=== PATIENT | female | born 1985 | race Caucasian/White ===

== ENCOUNTER 2022-11-07 13:11 | Inpatient (IN) | payer BC ==
[~2022-11-07] VITALS: Ht 162.6 cm; Wt 95.3 kg
--- NOTE | 2022-11-07 13:14 | NUR ---
Dr Patel evaluated the pt. Pt remaines postictal.
[2022-11-07] MEDS ORDERED: LORAZEPAM 2 MG/1 ML VIAL IM ONE ×2 (13:15→14:00)
[2022-11-07] MEDS ORDERED: IV NORMAL SALINE 1000 ML BAG IV ONE (13:15)
--- NOTE | 2022-11-07 13:20 | NUR ---
HL attempted by 2 different RNs unable to place one, Dr Patel ordered Midline. Nsg sup notified.
[2022-11-07] MEDS ORDERED: LORAZEPAM 2 MG/1 ML VIAL ONE ×3 (13:28→20:30)
[2022-11-07] MEDS ORDERED: LORAZEPAM 2 MG/1 ML VIAL IV ONE ×2 (13:30→17:00)
[2022-11-07] MEDS ORDERED: levETIRAcetam 500 MG/5 ML VIAL IV ONE ×2 (13:32→21:18)
[2022-11-07 13:34] LABS: HEMATOCRIT 39.9 % (31.2-41.9); MEAN CORPUSCULAR HEMOGLOBIN 31.7 uug (24.7-32.8); MEAN CORPUSCULAR VOLUME 93.9 fL (75.5-95.3); PLATELET COUNT (AUTO) 355 K/uL (179-408)
[2022-11-07] MEDS ORDERED: PREG200C PO (13:51)
[2022-11-07] MEDS ORDERED: CLON0.1T PO (13:51)
[2022-11-07] MEDS ORDERED: LITH300C2 PO (13:51)
[2022-11-07] MEDS ORDERED: ESCI10TA PO (13:51)
[2022-11-07] MEDS ORDERED: BUPR200T31 PO (13:51)
[2022-11-07] MEDS ORDERED: BUPR8TAB4 SL (13:51)
[2022-11-07] MEDS ORDERED: HYDR50CA5 PO (13:51)
[2022-11-07] MEDS ORDERED: PRAZ1CAP5 PO (13:51)
[2022-11-07] MEDS ORDERED: VALA500T34 PO (13:51)
[2022-11-07] MEDS ORDERED: TRAZ-257 PO (13:51)
[2022-11-07] MEDS ORDERED: METH-807 PO (13:51)
[2022-11-07] MEDS ORDERED: TOPI50TA PO (13:51)
[2022-11-07] MEDS ORDERED: ONDA4TAB11 PO (13:51)
[2022-11-07] MEDS ORDERED: BUSP15TA3 PO (13:51)
[2022-11-07] MEDS ORDERED: LEVE500T9 PO (13:51)
[2022-11-07] MEDS ORDERED: DIAZ10TA4 PO (13:51)
[2022-11-07] MEDS ORDERED: PIPERACILLIN SODIUM/TAZOBACTAM 3.375 G in IV DEXTROSE 5% 50 ML IV ONE (14:15)
[2022-11-07 14:44] LABS: POTASSIUM 4.3 mmol/L (3.5-5.1)
[2022-11-07 14:49] LABS: BILIRUBIN,DIRECT 0.4 mg/dL (0.0-0.2); TOTAL PROTEIN, SERUM 8.6 g/dL (6.4-8.2)
--- NOTE | 2022-11-07 15:20 | NUR ---
Pt agreed to have centeral line, and signed consent. Also spoke to Pt's motherw/ Dr Patel( yolanda De La Garza) and recieved verbal consent.
--- NOTE | 2022-11-07 15:20 | NUR ---
Pt's mother Gloria@ [phone].
--- NOTE | 2022-11-07 15:30 | NUR ---
Dr Patel placed a triple lumen centeral line on Rt external jugular.
[2022-11-07] MEDS: levETIRAcetam IV 1,000 MG in IV DEXTROSE 5% 100 ML IV SCH ×3 (15:46→22:03)
[2022-11-07] MEDS ORDERED: PIPERACILLIN/TAZOBACTAM/D5W 50 ML IV ONE ×2 (15:53→23:01)
[2022-11-07] MEDS ORDERED: ACETAMINOPHEN 325 MG TABLET PO PRN (16:00)
[2022-11-07] MEDS ORDERED: MAGNESIUM HYDROXIDE 30 ML LIQUID UDC PO PRN (16:00)
[2022-11-07] MEDS ORDERED: ONDANSETRON 4 MG/2 ML VIAL IV PRN (16:00)
[2022-11-07] MEDS ORDERED: REMEDY ESSENTIAL ZINC PASTE 113 GM TP PRN (16:00)
[2022-11-07] MEDS ORDERED: LIDOCAINE HCL 1% 20 ML VIAL ONE (16:12)
[2022-11-07 16:31] LABS: ACETAMINOPHEN < 2.0 ug/mL (10-30)
--- NOTE | 2022-11-07 16:55 | NUR ---
Pt confused, getting out of bed. Gait unsteady. Dr Patel made aware.
[2022-11-07 17:29] LABS: *AMPHETAMINE, URINE NEGATIVE (NEGATIVE); *CANNABINOID, URINE NEGATIVE (NEGATIVE); *COCCAINE, URINE NEGATIVE (NEGATIVE); *PHENCYCLIDINE SCREEN,URINE NEGATIVE (NEGATIVE)
--- NOTE | 2022-11-07 17:34 | NUR ---
Patient is resting comfortably in bed with eyes closed< NAD noted. Continue close monitoring.
--- NOTE | 2022-11-07 18:40 | NUR ---
Pt resting w/ both eyes closed, NAD noted. Continue monitoring.
--- NOTE | 2022-11-07 19:15 | NUR ---
REPORT RECEIVED FROM BRENNAN HIDALGO.
--- NOTE | 2022-11-07 20:20 | NUR ---
PT WAS AGITATED. DR NAIK CALLED FOR ORDERS. ORDERS RECEIVED FOR ATIVAN AND LIBRIUM. SEE EMAR.
[2022-11-07] MEDS: CHLORDIAZEPOXIDE HCL 25 MG CAPSULE PO SCH (20:30)
[2022-11-07] MEDS ORDERED: CHLORDIAZEPOXIDE HCL 25 MG CAPSULE ONE (20:31)
[2022-11-07] MEDS: LORAZEPAM 2 MG/1 ML VIAL IV PRN (20:40)
--- NOTE | 2022-11-07 21:35 | NUR ---
PT SEDATED WITH NAD OBSERVED. Pt. admitted to 310 , under care of Dr. NAIK Belongs List completed. PT TAKEN TO 310 VIA [facility].
--- NOTE | 2022-11-07 21:45 | NUR ---
RECEIVED PATIENT VIA GURNEY TO ER. PATIENT IS ALERT TO SELF. DOUBLE LUMEN INTERNAL JUGULAR NOTED TO RIGHT SIDE. AGITATED AND DISORIENTED. VS WNL UPON ADMISSION TO FLOOR. PLACED ON TELE ORDERED, SR 60'S. NO SEIZURE ACTIVITY NOTED AT THIS TIME. SIDE RAILS PADDED FOR SEIZURE PRECAUTIONS. NO RESP. DISTRESS NOTED. BED ALARM ON. CALL LIGHT IN REACH. ALL NEEDS ATTENDED, WILL CONTINUE TO MONITOR AND ASSESS. Addendum: 11/08/22 at 0246 by KATHERINE RAMÍREZ LVN *TIME CLARIFICATION- PATIENT ARRIVED TO THE FLOOR AT 2240
--- NOTE | 2022-11-07 22:35 | NUR ---
PT TAKEN TO 310 VIA GURNEY. WAITED FOR ROLLOVER.
[2022-11-07 22:59] VITALS: BP 113/73
--- NOTE | 2022-11-07 23:00 | NUR ---
PATIENT PULLED OUT INTERNAL JUGULAR NOTED TO RIGHT SIDE. CALLED OUT TO MD FOR RESTRAINT ORDERS.
--- NOTE | 2022-11-08 00:37 | NUR ---
PATIENT ASLEEP IN BED. ON TELE SR. NO RESP. DISTRESS NOTED. BED ALARM ON.
[2022-11-08] MEDS: LORAZEPAM 2 MG/1 ML VIAL IV PRN (01:32)
[2022-11-08 04:00] VITALS: BP 117/65
[2022-11-08] MEDS: PANTOPRAZOLE SODIUM 40 MG TABLET.DR PO SCH (06:02)
--- NOTE | 2022-11-08 06:36 | NUR ---
PATIENT AWAKE IN BED. CALM AT THIS TIME. RESTRAINTS OFF AT THIS TIME. NO IV ACCESS NOTED. MID-LINE ORDERED FOR AM. ALL NEEDS ATTENDED. BED ALARM ON. ON TELE SR.
[2022-11-08 07:02] LABS: HEMATOCRIT 37.7 % (31.2-41.9); MEAN CORPUSCULAR HEMOGLOBIN 31.9 uug (24.7-32.8); MEAN CORPUSCULAR VOLUME 94.9 fL (75.5-95.3); PLATELET COUNT (AUTO) 300 K/uL (179-408)
[2022-11-08 07:05] LABS: BILIRUBIN,DIRECT 0.3 mg/dL (0.0-0.2); BILIRUBIN,TOTAL 0.8 mg/dL (0.2-1.0); CREATININE 0.9 mg/dL (0.6-1.3); MAGNESIUM 2.1 mg/dL (1.8-2.4); TOTAL PROTEIN, SERUM 7.7 g/dL (6.4-8.2)
[2022-11-08 08:00] VITALS: BP 131/64
[2022-11-08] MEDS ORDERED: PIPERACILLIN SODIUM/TAZOBACTAM 3.375 G in IV DEXTROSE 5% 50 ML IV SCH ×3 (08:00)
[2022-11-08] MEDS: PIPERACILLIN SODIUM/TAZOBACTAM 3.375 G in IV DEXTROSE 5% 100 ML IV SCH ×2 (08:00→16:00)
[2022-11-08] MEDS: CHLORDIAZEPOXIDE HCL 25 MG CAPSULE PO SCH ×2 (09:00→16:56)
[2022-11-08] MEDS: levETIRAcetam IV 1,000 MG in IV DEXTROSE 5% 100 ML IV SCH (09:00)
--- NOTE | 2022-11-08 10:56 | NUR ---
pt in bilateral upper restrsints and refusing midkline placment and kicking at [facility] dr goel paged pt stating she wants to go0 back to detox center no seizures noted at this time
[2022-11-08 11:54] VITALS: BP 137/96
[2022-11-08] MEDS: FOLIC ACID 1 MG TABLET PO SCH (13:15)
[2022-11-08] MEDS ORDERED: HALOPERIDOL LACTATE 5 MG/1 ML VIAL IM ONE ×2 (13:30→17:00)
[2022-11-08] MEDS: LITHIUM CARBONATE 300 MG CAPSULE PO SCH (16:56)
[2022-11-08] MEDS: busPIRone 10 MG TABLET PO SCH (17:00)
[2022-11-08] MEDS ORDERED: LORAZEPAM 2 MG/1 ML VIAL IM ONE (17:30)
[2022-11-08] MEDS ORDERED: diphenhydrAMINE 50 MG/1 ML VIAL IV ONE ×3 (17:30→20:15)
[2022-11-08] MEDS: PRAZOSIN HCL 1 MG CAPSULE PO SCH (18:49)
--- NOTE | 2022-11-08 18:51 | NUR ---
pt with multiple code del real codes called due to her restraints removed after pt found in an comprised postion in bed between the rails. sushma with pschy notifed as well as ccnp radha. pt direactable but keeps attemptinh to leave after numerous amys of medications given
--- NOTE | 2022-11-08 20:00 | NUR ---
pt received in the room very restless and disoriented with multiple code del real codes called due to her removed after pt found in an comprised postion in bed between the rails. medications given after mupli[ple, patient made safe and comfortable,
[2022-11-08] MEDS: levETIRAcetam 500 MG TABLET PO SCH (20:36)
[2022-11-08] MEDS: TRAZODONE 100 MG TABLET PO SCH (20:37)
[2022-11-09 07:29] LABS: HEMATOCRIT 36.6 % (31.2-41.9); MEAN CORPUSCULAR HEMOGLOBIN 31.7 uug (24.7-32.8); MEAN CORPUSCULAR VOLUME 92.9 fL (75.5-95.3); PLATELET COUNT (AUTO) 320 K/uL (179-408)
[2022-11-09] MEDS: PIPERACILLIN SODIUM/TAZOBACTAM 3.375 G in IV DEXTROSE 5% 100 ML IV SCH ×3 (08:00)
--- NOTE | 2022-11-09 08:00 | NUR ---
pt is confused and want to get out of the bed. pt is fall risk secondary to diagnosis. MD ordered 1:1 sitter for the pt, nursing boiler shop supervisor was informed. no sitter available per nursing boiler shop supervisor.
--- NOTE | 2022-11-09 08:00 | NUR ---
zozyn dosed not administered. pt have no iv access. pt is restless to established iv access. md cobos aware.
[2022-11-09 08:01] LABS: BILIRUBIN,DIRECT 0.2 mg/dL (0.0-0.2); BILIRUBIN,TOTAL 0.6 mg/dL (0.2-1.0); CREATININE 0.9 mg/dL (0.6-1.3); MAGNESIUM 2.1 mg/dL (1.8-2.4); PHOSPHOROUS 4.7 mg/dL (2.5-4.9); POTASSIUM 3.7 mmol/L (3.5-5.1); TOTAL PROTEIN, SERUM 7.8 g/dL (6.4-8.2)
[2022-11-09] MEDS ORDERED: LORAZEPAM 2 MG/1 ML VIAL IM ONE (08:15)
[2022-11-09] MEDS: TOPIRAMATE 25 MG TABLET PO SCH (08:25)
[2022-11-09] MEDS: THIAMINE HCL 100 MG TABLET PO SCH (08:26)
[2022-11-09] MEDS: levETIRAcetam 500 MG TABLET PO SCH ×2 (08:26→20:40)
[2022-11-09] MEDS: CHLORDIAZEPOXIDE HCL 25 MG CAPSULE PO SCH ×2 (08:26→17:20)
[2022-11-09] MEDS: ESCITALOPRAM OXALATE 10 MG TABLET PO SCH (08:26)
[2022-11-09] MEDS: FOLIC ACID 1 MG TABLET PO SCH (08:26)
[2022-11-09] MEDS: LITHIUM CARBONATE 300 MG CAPSULE PO SCH ×2 (08:28→17:20)
[2022-11-09] MEDS: busPIRone 10 MG TABLET PO SCH ×2 (08:28→17:20)
[2022-11-09] MEDS: PANTOPRAZOLE SODIUM 40 MG TABLET.DR PO SCH (08:39)
--- NOTE | 2022-11-09 09:00 | NUR ---
pt is agitated and restless. made aware. new order carried out. ativan 2mg IM was administered.
--- NOTE | 2022-11-09 10:06 | NUR ---
SW consult for discharge planning. JESSICA spoke to patient's mother, Brandi Perez ([phone]) and she states the patient has been staying at a sober living facility, [facility] ([phone]). JESSICA spoke to Vikash from [facility] and he states the patient will be transferring to [facility] ([phone]) under the direct care of Dr. Zarate. JESSICA spoke to Dr. Zarate and he confirmed that the patient is accepted to the [facility] when she is discharged. JESSICA informed bilingual case manager, Perlita and will continue to follow up.
[2022-11-09 11:00] LABS: THYROID STIMULATING HORMONE 1.414 mIU/mL (0.358-3.740)
[2022-11-09 12:00] VITALS: BP 119/63
--- NOTE | 2022-11-09 12:00 | NUR ---
pt is still confused and agitated. md made aware. soft wrist bilateral medical restraint order was ordered.
--- NOTE | 2022-11-09 12:00 | NUR ---
pt was seen by the psychiatrist. no new order at this time.
--- NOTE | 2022-11-09 13:12 | NUR ---
Discharge note: JESSICA spoke with the admitting Doctor, Dr. Zarate ([phone]) and the patient can be transferred to [address] [id number] tomorrow 11/10/2022 at 10am. JESSICA informed the case packer and sealer, Perlita and she will set up transportation for the patient. JESSICA informed Abilio Subramanian NP and the patient's mother, Gloria.
[2022-11-09] MEDS ORDERED: LORAZEPAM 1 MG TABLET PO PRN (14:00)
[2022-11-09] MEDS ORDERED: OLANZAPINE 5 MG TABLET PO PRN (14:00)
[2022-11-09] MEDS: LACTULOSE 20 G/30 ML LIQUID UDC PO SCH ×2 (15:52→20:40)
[2022-11-09 16:00] VITALS: BP 146/68
[2022-11-09] MEDS: PRAZOSIN HCL 1 MG CAPSULE PO SCH (17:20)
--- NOTE | 2022-11-09 20:00 | NUR ---
Received patient lying in bed. Alert to self only. In no acute distress. No signs or symptoms of pain or SOB. Bilateral wrist restraint in place. Check hand circulation. Needs assessed and anticipated to Safety measure initiated. Continue to monitor.
[2022-11-09 20:24] VITALS: BP 126/74
[2022-11-09] MEDS: TRAZODONE 100 MG TABLET PO SCH (20:40)
[2022-11-10 04:43] VITALS: BP 126/76
--- NOTE | 2022-11-10 05:28 | NUR ---
In no acute distress. Alert to self only. Able to follow direction. Periods of anxiety. Given Ativan 1mg PO. Incontinent care provided. Assisted to toilet per request.
[2022-11-10] MEDS: PANTOPRAZOLE SODIUM 40 MG TABLET.DR PO SCH (06:10)
[2022-11-10 08:00] VITALS: BP 142/80
--- NOTE | 2022-11-10 08:00 | NUR ---
pt resting in bed with legs over the rails- instructed to put back legs in bed and did, oriented to name only, no distress noted, assisted wisth meal but ate very little, took all meds, no coughing episode noted, safety measures in place, bed alarm on
[2022-11-10] MEDS: levETIRAcetam 500 MG TABLET PO SCH (09:03)
[2022-11-10] MEDS: busPIRone 10 MG TABLET PO SCH (09:04)
[2022-11-10] MEDS: ESCITALOPRAM OXALATE 10 MG TABLET PO SCH (09:04)
[2022-11-10] MEDS: LITHIUM CARBONATE 300 MG CAPSULE PO SCH (09:05)
[2022-11-10] MEDS: THIAMINE HCL 100 MG TABLET PO SCH (09:05)
[2022-11-10] MEDS: FOLIC ACID 1 MG TABLET PO SCH (09:05)
[2022-11-10] MEDS: LACTULOSE 20 G/30 ML LIQUID UDC PO SCH (09:06)
[2022-11-10] MEDS: CHLORDIAZEPOXIDE HCL 25 MG CAPSULE PO SCH (09:06)
[2022-11-10] MEDS: TOPIRAMATE 25 MG TABLET PO SCH (09:06)
--- NOTE | 2022-11-10 09:26 | NUR ---
am care done, to be discharged today at [facility] via ambulance
--- NOTE | 2022-11-10 10:20 | NUR ---
ambulance here- report given- ID bracelet removed, all belongings given, taken per gurney in stable condition, called [facility] and report given- papers needed to be faxed to them- SW informed
[2022-11-11] MEDS ORDERED: BUPR2TAB3 SL (16:42)
[2022-11-11] MEDS ORDERED: OLAN5TAB70 PO (16:42)
[2022-11-11] MEDS ORDERED: PREG50CA PO (16:42)
[2022-11-11] MEDS ORDERED: TOPI25TA PO (16:42)
[2022-11-11] MEDS ORDERED: LITH300C4 PO (16:42)
[2022-11-12] MEDS ORDERED: LEVE500T9 PO ×2 (09:49→11:15)
[2022-11-12] MEDS ORDERED: BUPR2TAB3 SL (11:15)
[2022-11-12] MEDS ORDERED: PREG50CA PO (11:15)
[2022-11-12] MEDS ORDERED: LORA0.5T48 PO (11:15)
== END 2022-11-10 10:20 | disposition other institution (70) | DRG 100 ==
LOC: ER 13:11 → TELE3 21:56 → MEDSURG3 11-08 14:55
PROVIDERS: ADMIT Student in an Organized Health Care Education/Training Program; ATTEND Student in an Organized Health Care Education/Training Program
PROC: 02H633Z Insertion of Infusion Device into Right Atrium, Percutaneous Approach (ICD-10-PCS; principal; 2022-11-07)
DX: G40.509 Epileptic seizures related to external causes, not intractable, without status epilepticus (principal); G92.8 Other toxic encephalopathy; F10.139 Alcohol abuse with withdrawal, unspecified; G47.00 Insomnia, unspecified; F41.9 Anxiety disorder, unspecified; R94.01 Abnormal electroencephalogram [EEG]; F31.9 Bipolar disorder, unspecified; Z88.2 Allergy status to sulfonamides; Z87.891 Personal history of nicotine dependence; Z79.899 Other long term (current) drug therapy; R74.01 Elevation of levels of liver transaminase levels; Z78.1 Physical restraint status; F19.10 Other psychoactive substance abuse, uncomplicated
CPT/HCPCS: 36415; 36556; 70030-TC; 71045; 83735; 84100; 84443; 85025; 93005; A4663; G0378; G0480; J1200; J1630; J1953; J2060; J2543; J3490; J7040

== ENCOUNTER 2022-11-10 12:01 | Inpatient (IN) | payer BC ==
[~2022-11-10] VITALS: Ht 167.6 cm; Wt 84.4 kg
[~2022-11-10 12:01] MED LIST: BUPR200T31 PO; BUPR8TAB4 SL; BUSP15TA3 PO; CLON0.1T PO; DIAZ10TA4 PO; ESCI10TA PO; HYDR50CA5 PO; LEVE500T9 PO; LITH300C2 PO; METH-807 PO; ONDA4TAB11 PO; PRAZ1CAP5 PO; PREG200C PO; TOPI50TA PO; TRAZ-257 PO; VALA500T34 PO
[2022-11-10] MEDS ORDERED: BUPRENORPHINE HCL 2 MG TAB.SUBL SL ONE ×2 (12:15→12:50)
[2022-11-10] MEDS ORDERED: LORAZEPAM 0.5 MG TABLET PO ONE (12:15)
[2022-11-10 12:43] LABS: HEMATOCRIT 38.3 % (31.2-41.9); MEAN CORPUSCULAR HEMOGLOBIN 31.5 uug (24.7-32.8); MEAN CORPUSCULAR VOLUME 93.1 fL (75.5-95.3); PLATELET COUNT (AUTO) 340 K/uL (179-408)
[2022-11-10] MEDS ORDERED: LORAZEPAM 1 MG TABLET ONE (12:49)
[2022-11-10 12:58] LABS: CARBON DIOXIDE 23 mmol/L (21-32); CHLORIDE 104 mmol/L (98-107); CREATININE 0.9 mg/dL (0.6-1.3); GLUCOSE 139 mg/dL (74-106); POTASSIUM 3.7 mmol/L (3.5-5.1); UREA NITROGEN, BLOOD 7 mg/dL (7-18)
[2022-11-10 13:12] LABS: ALANINE AMINOTRANSFERASE 135 U/L (14-59); ALKALINE PHOSPHATASE 312 U/L (50-136); ASPARTATE AMINOTRANSFERASE 52 U/L (15-37); BILIRUBIN,DIRECT 0.2 mg/dL (0.0-0.2); BILIRUBIN,TOTAL 0.6 mg/dL (0.2-1.0); TOTAL PROTEIN, SERUM 8.9 g/dL (6.4-8.2)
[2022-11-10 13:54] LABS: ACETAMINOPHEN < 2.0 ug/mL (10-30)
[2022-11-10] MEDS ORDERED: HALOPERIDOL LACTATE 5 MG/1 ML VIAL ONE (14:54)
[2022-11-10] MEDS ORDERED: diphenhydrAMINE 50 MG/1 ML VIAL ONE (14:54)
[2022-11-10] MEDS ORDERED: MAGNESIUM HYDROXIDE 30 ML LIQUID UDC PO PRN (15:00)
[2022-11-10] MEDS ORDERED: diphenhydrAMINE 50 MG/1 ML VIAL IM ONE (15:00)
[2022-11-10] MEDS ORDERED: OLANZAPINE 5 MG TABLET PO PRN (15:00)
[2022-11-10] MEDS ORDERED: LORAZEPAM 2 MG/1 ML VIAL IM PRN (15:00)
[2022-11-10] MEDS ORDERED: ONDANSETRON 4 MG/2 ML VIAL IV PRN (15:00)
[2022-11-10] MEDS ORDERED: ACETAMINOPHEN 325 MG TABLET PO PRN (15:00)
[2022-11-10] MEDS ORDERED: HALOPERIDOL LACTATE 5 MG/1 ML VIAL IM ONE (15:00)
[2022-11-10] MEDS ORDERED: REMEDY ESSENTIAL ZINC PASTE 113 GM TP PRN (15:00)
[2022-11-10] MEDS: LITHIUM CARBONATE 300 MG CAPSULE PO SCH (17:00)
[2022-11-10] MEDS ORDERED: PREGABALIN 100 MG CAPSULE PO SCH (17:00)
[2022-11-10] MEDS ORDERED: PREGABALIN 50 MG CAPSULE ONE (17:04)
[2022-11-10] MEDS: BUPRENORPHINE HCL 2 MG TAB.SUBL SL SCH (17:07)
[2022-11-10 18:39] LABS: *URINE HCG, QUAL NEG (NEGATIVE)
[2022-11-10 18:47] LABS: *AMPHETAMINE, URINE NEGATIVE (NEGATIVE); *CANNABINOID, URINE NEGATIVE (NEGATIVE); *COCCAINE, URINE NEGATIVE (NEGATIVE); *PHENCYCLIDINE SCREEN,URINE NEGATIVE (NEGATIVE)
[2022-11-10 18:50] LABS: *BILIRUBIN,URIN 1+ (NEGATIVE); *BLOOD, URINE NEGATIVE (NEGATIVE); *CLARITY,URINE CLEAR (CLEAR); *COLOR,URINE YELLOW (YELLOW); *KETONES,URINE TRACE (NEGATIVE); LEUKOCYTE ESTERASE ,URINE 1+ (NEGATIVE); NITRITE, URINE NEGATIVE (NEGATIVE); PH,URINE 5.5 (5.0-8.0); UGLUCOSE NEGATIVE (NEGATIVE)
[2022-11-10] MEDS: OLANZAPINE 5 MG TABLET PO SCH (21:50)
[2022-11-11 00:03] LABS: BACTERIA,URINE FEW /HPF (NONE SEEN); SQUAMOUS EPITHELIAL CELL,UR FEW /HPF (NONE SEEN)
[2022-11-11 08:20] LABS: HEMATOCRIT 36.2 % (31.2-41.9); MEAN CORPUSCULAR HEMOGLOBIN 31.4 uug (24.7-32.8); MEAN CORPUSCULAR VOLUME 92.6 fL (75.5-95.3); PLATELET COUNT (AUTO) 297 K/uL (179-408)
[2022-11-11] MEDS: PREGABALIN 50 MG CAPSULE PO SCH ×2 (08:50→16:48)
[2022-11-11] MEDS: LITHIUM CARBONATE 300 MG CAPSULE PO SCH ×3 (08:51→16:48)
[2022-11-11] MEDS: TOPIRAMATE 25 MG TABLET PO SCH (08:51)
[2022-11-11] MEDS: BUPRENORPHINE HCL 2 MG TAB.SUBL SL SCH ×3 (08:51→16:49)
[2022-11-11] MEDS: CHLORDIAZEPOXIDE HCL 25 MG CAPSULE PO SCH (08:54)
[2022-11-11] MEDS ORDERED: BUPRENORPHINE HCL 2 MG TAB.SUBL SL SCH (09:00)
[2022-11-11 09:08] LABS: BILIRUBIN,TOTAL 0.6 mg/dL (0.2-1.0); CREATININE 0.9 mg/dL (0.6-1.3); MAGNESIUM 2.1 mg/dL (1.8-2.4); POTASSIUM 3.8 mmol/L (3.5-5.1); TOTAL PROTEIN, SERUM 7.8 g/dL (6.4-8.2)
[2022-11-11 09:16] LABS: THYROID STIMULATING HORMONE 1.942 mIU/mL (0.358-3.740)
[2022-11-11 12:14] VITALS: BP 103/65
[2022-11-11] MEDS ORDERED: PREG50CA PO (16:42)
[2022-11-11] MEDS ORDERED: LITH300C4 PO (16:42)
[2022-11-11] MEDS ORDERED: TOPI25TA PO (16:42)
[2022-11-11] MEDS ORDERED: OLAN5TAB70 PO (16:42)
[2022-11-11] MEDS ORDERED: BUPR2TAB3 SL (16:42)
[2022-11-11] MEDS: OLANZAPINE 5 MG TABLET PO SCH (20:39)
[2022-11-11 20:49] VITALS: BP 101/51
[2022-11-11] MEDS: levETIRAcetam 500 MG TABLET PO SCH (21:53)
[2022-11-12 04:01] VITALS: BP 114/72
[2022-11-12] MEDS: LORAZEPAM 0.5 MG TABLET PO PRN ×2 (04:08→15:53)
[2022-11-12] MEDS: PREGABALIN 50 MG CAPSULE PO SCH ×2 (09:00→17:00)
[2022-11-12] MEDS: CHLORDIAZEPOXIDE HCL 25 MG CAPSULE PO SCH (09:26)
[2022-11-12] MEDS: LITHIUM CARBONATE 300 MG CAPSULE PO SCH ×3 (09:27→16:59)
[2022-11-12] MEDS: levETIRAcetam 500 MG TABLET PO SCH ×2 (09:27→17:11)
[2022-11-12] MEDS: TOPIRAMATE 25 MG TABLET PO SCH (09:27)
[2022-11-12] MEDS: BUPRENORPHINE HCL 2 MG TAB.SUBL SL SCH ×3 (09:27→16:59)
[2022-11-12] MEDS ORDERED: LEVE500T9 PO ×2 (09:49→11:15)
[2022-11-12] MEDS ORDERED: PREG50CA PO (11:15)
[2022-11-12] MEDS ORDERED: BUPR2TAB3 SL (11:15)
[2022-11-12] MEDS ORDERED: LORA0.5T48 PO (11:15)
[2022-11-12] MEDS: OLANZAPINE 5 MG TABLET PO SCH (16:58)
== END 2022-11-12 17:15 | disposition other institution (70) | DRG 100 ==
LOC: ER 12:01 → MEDSURG3 21:06
PROVIDERS: ADMIT Nurse Practitioner Family; ATTEND Nurse Practitioner Family
DX: G40.509 Epileptic seizures related to external causes, not intractable, without status epilepticus (principal); G92.8 Other toxic encephalopathy; K70.9 Alcoholic liver disease, unspecified; F10.20 Alcohol dependence, uncomplicated; F31.9 Bipolar disorder, unspecified; Z88.6 Allergy status to analgesic agent; F41.9 Anxiety disorder, unspecified; G47.00 Insomnia, unspecified; R62.7 Adult failure to thrive; Z88.5 Allergy status to narcotic agent; Z88.2 Allergy status to sulfonamides; Z88.8 Allergy status to other drugs, medicaments and biological substances; R74.01 Elevation of levels of liver transaminase levels; Z79.899 Other long term (current) drug therapy; I10 Essential (primary) hypertension
CPT/HCPCS: 36415; 70030-TC; 70450; 83735; 84100; 84443; 84703; 85025; A4663; G0378; G0480; J1200; J1630